=== PATIENT | female | born 1995 | race American Indian/Alaskan Native ===

== ENCOUNTER 2018-10-08 21:16 | Emergency (ER) | payer OTHER ==
[2018-10-08 21:24] VITALS: BP 130/77
--- NOTE | 2018-10-08 21:28 | Event Note ---
ED Screening Note ED Screening Note: pt states she fell at work in the bathroom states she slipped and fell states that she has right hip and right knee pain never injured before no PMHx no allergies to meds LNMP: 10/04/18 + occ smoker +occ drinker no drug use This initial assessment/diagnostic orders/clinical plan/treatment(s) is/are subject to change based on patients health status, clinical progression and re- assessment by fellow clinical providers in the ED. Further treatment and workup at subsequent clinical providers discretion. Patient/guardian urged not to elope from the ED as their condition may be serious if not clinically assessed and managed. Initial orders include: XR of the right hip and right knee
--- NOTE | 2018-10-08 22:56 | XRay Report ---
PROCEDURE: XR HIP 2-3V RT TECHNIQUE: AP view of the pelvis and single cone-down view of the right hip. HISTORY: fall, right hip pain COMPARISONS: None . FINDINGS: No evidence for acute fracture or dislocation is seen. Joint spaces are maintained. The soft tissues are unremarkable. Bony mineralization is normal. IMPRESSION: No acute soft tissue or bony abnormality noted in the right hip. This document is electronically signed by Kylee Garibay MD., October 08 2018 10:54:45 PM ET
--- NOTE | 2018-10-08 22:57 | XRay Report ---
PROCEDURE: XR KNEE 3V RT TECHNIQUE: AP, oblique, and lateral views of the right knee HISTORY: fall, right knee pain COMPARISONS: None . FINDINGS: No acute fracture or dislocation is seen. The soft tissues are unremarkable with no evidence for supr apatellar joint effusion. Joint spaces are maintained and bony mineralization is normal. IMPRESSION: Negative views of the right knee. This document is electronically signed by Kylee Garibay MD., October 08 2018 10:55:34 PM ET
[2018-10-08] MEDS ORDERED: IBUPROFEN PO ONE (23:21)
[2018-10-08] MEDS ORDERED: TYLENOL PO ONE (23:21)
--- NOTE | 2018-10-09 00:02 | Emergency Department Report ---
ED Lower Extremity HPI - General Chief Complaint: Fall Stated Complaint: FALL AT WORK Time Seen by Provider: 10/08/18 21:26 Source: patient Mode of arrival: Ambulatory Limitations: No Limitations - History of Present Illness Initial Comments: Patient is a 23-year-old female with no past medical history presents to the ED with c/o acute onset persistent severe pain and right knee pain after she slipped on a wet floor at work 8 hours ago and fell down on the concrete floor. Patient states that the pain is worse with ambulation or any active range of motion. Patient denies head or neck injury, back pain, chest pain, shortness of breath, numbness and tingling of lower extremities bilaterally, urinary or bowel incontinence, saddle anesthesia, dizziness, syncope, nausea and vomiting. MD Complaint: hip injury (right), knee injury ( right) -: Sudden, hour(s) (8) Injury: Hip: Right (pain), Knee: Right (pain) Type of Injury: blunt, other (fall) Place: work Severity: severe Severity scale (0 -10): 7 Improves With: nothing Worsens With: weight bearing, movement, palpation Context: fall, direct blow, walking Associated Symptoms: able to partially bear weight. denies: swelling, numbness, tingling - Related Data Previous Rx's Medication Instructions Recorded Last Taken Type Ibuprofen [Motrin] 800 mg PO Q8HR PRN #20 tablet 10/09/18 Unknown Rx tiZANidine [Zanaflex 4mg TAB] 4 mg PO Q8H PRN #18 tablet 10/09/18 Unknown Rx traMADol [Ultram] 50 mg PO Q6HR PRN #12 tablet 10/09/18 Unknown Rx Allergies Allergy/AdvReac Type Severity Reaction Status Date / Time No Known Allergies Allergy Unverified 10/08/18 21:29 ED Review of Systems ROS: Stated complaint: FALL AT WORK Other details as noted in HPI Comment: All other systems reviewed and negative Constitutional: denies: chills, fever Eyes: denies: eye pain, eye discharge, vision change ENT: denies: ear pain, throat pain Respiratory: denies: cough, shortness of breath, wheezing Cardiovascular: denies: chest pain, palpitations Endocrine: no symptoms reported Gastrointestinal: denies: abdominal pain, nausea, diarrhea Genitourinary: denies: urgency, dysuria, discharge Musculoskeletal: arthralgia (right hip and knee pain). denies: back pain, joint swelling Skin: denies: rash, lesions Neurological: denies: headache, weakness, paresthesias Psychiatric: denies: anxiety, depression Hematological/Lymphatic: denies: easy bleeding, easy bruising ED Past Medical Hx - Past Medical History Previous Medical History?: No - Surgical History Past Surgical History?: Yes Hx Cholecystectomy: Yes Additional Surgical History: C-Sec X 2 - Social History Smoking Status: Current Some Day Smoker Substance Use Type: None - Medications Home Medications: Home Medications Medication Instructions Recorded Confirmed Last Taken Type Ibuprofen [Motrin] 800 mg PO Q8HR PRN #20 tablet 10/09/18 Unknown Rx tiZANidine [Zanaflex 4mg TAB] 4 mg PO Q8H PRN #18 tablet 10/09/18 Unknown Rx traMADol [Ultram] 50 mg PO Q6HR PRN #12 tablet 10/09/18 Unknown Rx ED Physical Exam - General Limitations: No Limitations General appearance: alert, in no apparent distress - Head Head exam: Present: atraumatic, normocephalic, normal inspection - Eye Eye exam: Present: normal appearance. Absent: PERRL, EOMI, scleral icterus, conjunctival injection, periorbital swelling, periorbital tenderness - ENT ENT exam: Present: normal exam, mucous membranes moist. Absent: TM's normal bilaterally, normal external ear exam - Neck Neck exam: Present: normal inspection, full ROM. Absent: tenderness - Respiratory Respiratory exam: Present: normal lung sounds bilaterally. Absent: respiratory distress, wheezes, rales, rhonchi, chest wall tenderness, decreased breath sounds - Cardiovascular Cardiovascular Exam: Present: regular rate, normal rhythm, normal heart sounds. Absent: systolic murmur, diastolic murmur, rubs, gallop - GI/Abdominal GI/Abdominal exam: Present: soft, normal bowel sounds. Absent: tenderness, hyperactive bowel sounds, hypoactive bowel sounds, organomegaly - Rectal Rectal exam: Present: deferred - Extremities Exam Extremities exam: Present: normal inspection, tenderness (right hip and knee tenderness), normal capillary refill. Absent: full ROM (limited ROM of right knee and hip due to pain) - Back Exam Back exam: Present: normal inspection, full ROM. Absent: tenderness, CVA tenderness (R), CVA tenderness (L), muscle spasm, paraspinal tenderness - Neurological Exam Neurological exam: Present: alert, oriented X3, CN II-XII intact, normal gait, reflexes normal - Psychiatric Psychiatric exam: Present: normal affect, normal mood - Skin Skin exam: Present: warm, dry, intact, normal color. Absent: rash ED Course Vital Signs 10/08/18 21:20 Temperature 98.5 F Pulse Rate 84 Respiratory 18 Rate Blood Pressure 130/77 O2 Sat by Pulse 99 Oximetry - Reevaluation(s) Reevaluation #1: 10/09/18 00:07 The patient is alert and oriented 3 and is not in any distress with normal vital signs. Patient was treated for pain in the ED and right knee and right hi p x-rays show no acute fractures or subluxations. Patient's injury is unlikely soft tissue and strain or sprain of the joints. Patient was discharged home on medications and muscle relaxants, and patient advised to follow-up with her primary care physician in 5-7 days for reevaluation or return to the ED immediately if symptoms get worse. ED Lower Extremity MDM - Radiology Data Radiology results: report reviewed, image reviewed right hip x-ray: No acute fractures Right knee x-ray: No acute fractures - Medical Decision Making The patient is alert and oriented 3 and is not in any distress with normal vital signs. Patient was treated for pain in the ED and right knee and right hip x-rays show no acute fractures or subluxations. Patient's injury is unlikely soft tissue and strain or sprain of the joints. Patient was discharged home on medications and muscle relaxants, and patient advised to follow-up with her primary care physician in 5-7 days for reevaluation or return to the ED immediately if symptoms get worse. - Differential Diagnosis right hip contusion; right knee sprain Critical care attestation.: If time is entered above; I have spent that time in minutes in the direct care of this critically ill patient, excluding procedure time. ED Disposition Clinical Impression: Sprain of right knee/leg Qualifiers: Encounter type: initial encounter Qualified Code(s): S83.91XA - Sprain of unspecified site of right knee, initial encounter Contusion of right hip and thigh Qualifiers: Encounter type: initial encounter Qualified Code(s): S70.01XA - Contusion of right hip, initial encounter; S70.11XA - Contusion of right thigh, initial encounter Disposition: DC-01 TO HOME OR SELFCARE Is pt being admited?: No Does the pt Need Aspirin: No Condition: Stable Instructions: Contusion in Adults (ED), Knee Sprain (ED) Additional Instructions: Take medications with food, drink plenty of fluids and follow-up with your primary care physician is advised in 5-7 days. Return to the ED immediately if symptoms get worse. Prescriptions: Ibuprofen [Motrin] 800 mg PO Q8HR PRN #20 tablet PRN Reason: Pain , Severe (7-10) traMADol [Ultram] 50 mg PO Q6HR PRN #12 tablet PRN Reason: Pain tiZANidine [Zanaflex 4mg TAB] 4 mg PO Q8H PRN #18 tablet PRN Reason: Muscle Spasm Referrals: CHERYL MASSEY [Primary Care Provider] - 3-5 Days Time of Disposition: 00:10 Print Language: ROMANIAN
== END 2018-10-09 00:24 | disposition home or self-care (01) ==
LOC: ED 21:16
DX: S83.91XA Sprain of unspecified site of right knee, initial encounter (principal); S70.01XA Contusion of right hip, initial encounter; S70.11XA Contusion of right thigh, initial encounter; F17.200 Nicotine dependence, unspecified, uncomplicated; Z90.49 Acquired absence of other specified parts of digestive tract; W01.198A Fall on same level from slipping, tripping and stumbling with subsequent striking against other object, initial encounter; Y93.89 Activity, other specified; Y92.69 Other specified industrial and construction area as the place of occurrence of the external cause; Y99.8 Other external cause status
CPT/HCPCS: 99283

== ENCOUNTER 2022-01-13 23:34 | Emergency (ER) | payer SELFPAY ==
--- NOTE | 2022-01-14 08:51 | Emergency Department Report ---
ED Female HPI - General Chief complaint: Urogenital-Female Stated complaint: POSS TAMPON STUCK INSIDE Time Seen by Provider: 01/14/22 07:09 Source: patient Mode of arrival: Ambulatory Limitations: No Limitations - History of Present Illness Initial comments: 26-year-old black female with no past medical history presents to the emergency department for evaluation of possible foreign body in vaginal canal. She states that she pulled out 2 tampons yesterday that were likely and started 2 or 3 days previously. He states that she had sex with her boyfriend yesterday then noted some increase in malodorous vaginal discharge. She states that she is unsure if there is another tampon inside of her causing a vaginal discharge. She denies fever, abdominal pain, nausea, vomiting. MD Complaint: vaginal discharge -: Gradual, days(s) (2-3) Severity scale (0 -10): 0 Are you Now?: No Associated Symptoms: vaginal discharge. denies: vaginal bleeding, abdominal pain, nausea/vomiting, fever/chills, headaches, loss of appetite, dysuria, hematuria, rash, seizure, shortness of breath, syncope, weakness - Related Data Sexually active: Yes Previous Rx's Medication Instructions Recorded Last Taken Type Ibuprofen [Motrin] 800 mg PO Q8HR PRN #20 tablet 10/09/18 Unknown Rx tiZANidine [Zanaflex 4mg TAB] 4 mg PO Q8H PRN #18 tablet 10/09/18 Unknown Rx traMADoL [Ultram] 50 mg PO Q6HR PRN #12 tablet 10/09/18 Unknown Rx Allergies Allergy/AdvReac Type Severity Reaction Status Date / Time No Known Allergies Allergy Unverified 10/08/18 21:29 ED Review of Systems ROS: Stated complaint: POSS TAMPON STUCK INSIDE Other details as noted in HPI Comment: All other systems reviewed and negative Constitutional: denies: chills, fever ENT: denies: congestion Respiratory: denies: shortness of breath Cardiovascular: denies: chest pain, palpitations Gastrointestinal: denies: abdominal pain, nausea, vomiting Genitourinary: discharge. denies: urgency, dysuria, frequency, hematuria, abnormal menses, dyspareunia Musculoskeletal: denies: back pain Neurological: denies: headache, weakness ED Past Medical Hx - Surgical History Hx Cholecystectomy: Yes Additional Surgical History: C-Sec X 2 - Social History Smoking Status: Current Some Day Smoker Substance Use Type: None - Medications Home Medications: Home Medications Medication Instructions Recorded Confirmed Last Taken Type Ibuprofen [Motrin] 800 mg PO Q8HR PRN #20 tablet 10/09/18 Unknown Rx tiZANidine [Zanaflex 4mg TAB] 4 mg PO Q8H PRN #18 tablet 10/09/18 Unknown Rx traMADoL [Ultram] 50 mg PO Q6HR PRN #12 tablet 10/09/18 Unknown Rx ED Physical Exam - General Limitations: No Limitations General appearance: alert, in no apparent distress - Head Head exam: Present: atraumatic, normocephalic - Eye Eye exam: Present: normal appearance. Absent: conjunctival injection, periorbital swelling, periorbital tenderness - ENT ENT exam: Present: normal exam - Neck Neck exam: Present: normal inspection - Respiratory Respiratory exam: Present: normal lung sounds bilaterally. Absent: respiratory distress, wheezes, rales, stridor, chest wall tenderness - Cardiovascular Cardiovascular Exam: Present: regular rate, normal heart sounds - GI/Abdominal GI/Abdominal exam: Present: soft, normal bowel sounds. Absent: distended, tenderness, guarding, rebound, rigid - External exam: Present: normal external exam Speculum exam: Present: vaginal discharge. Absent: vaginal bleeding, foreign body Bi-manual exam: Absent: cervical motion tendernes, adnexal tenderness, adnexal mass, uterine tenderness - Extremities Exam Extremities exam: Present: normal inspection, normal capillary refill - Back Exam Back exam: Present: normal inspection. Absent: CVA tenderness (R), CVA tenderness (L), vertebral tenderness - Neurological Exam Neurological exam: Present: alert, oriented X3 - Psychiatric Psychiatric exam: Present: normal affect, normal mood - Skin Skin exam: Present: warm, dry, intact, normal color ED Course Vital Signs 01/14/22 00:50 Temperature 98.4 F Pulse Rate 85 Respiratory 18 Rate Blood Pressure 128/67 [Right] O2 Sat by Pulse 99 Oximetry ED Medical Decision Making - Medical Decision Making 26-year-old black female with no past medical history presents to the emergency department for evaluation of possible foreign body in vaginal canal. She states that she pulled out 2 tampons yesterday that were likely and started 2 or 3 days previously. He states that she had sex with her boyfriend yesterday then noted some increase in malodorous vaginal discharge. She states that she is unsure if there is another tampon inside of her causing a vaginal discharge. She denies fever, abdominal pain, nausea, vomiting. No foreign body found on speculum vaginal exam assessment. Wet prep negative for BV, trichomoniasis, and yeast. Patient states that she has follow-up with her primary care provider for further evaluation and testing. She is advised to return to the emergency department as needed. She verbalizes understanding of and agreement with plan of care. Critical care attestation.: If time is entered above; I have spent that time in minutes in the direct care of this critically ill patient, excluding procedure time. ED Disposition Clinical Impression: Vaginal discharge Disposition: 01 HOME / SELF CARE / HOMELESS Is pt being admited?: No Does the pt Need Aspirin: No Condition: Stable Instructions: Vaginitis, [id number] Additional Instructions: Follow-up with your primary care provider as planned. Return to the emergency department as needed Referrals: WARREN DENNISON MD [Staff Physician] - 3-5 Days Forms: Work/School Release Form(ED) Time of Disposition: 08:51
[2022-01-14 09:20] VITALS: BP 129/78
== END 2022-01-14 09:20 | disposition home or self-care (01) ==
LOC: ED 23:34
DX: N89.8 Other specified noninflammatory disorders of vagina (principal); Z90.49 Acquired absence of other specified parts of digestive tract; F17.200 Nicotine dependence, unspecified, uncomplicated
CPT/HCPCS: 87210; 99283